=== PATIENT | male | born 1960 | race Caucasian/White ===

== ENCOUNTER 2020-11-28 17:14 | Outpatient (CLI) | payer BC | END 2020-11-28 17:15 | disposition home or self-care (01) | LOC: COV 17:14 | PROVIDERS: ATTEND Family Medicine | DX: Z20.822 Contact with and (suspected) exposure to COVID-19 (principal) ==

== ENCOUNTER 2024-02-15 12:36 | Emergency (ER) | payer BC ==
[2024-02-15 12:52] VITALS: BP 129/77; O2SAT 99
--- NOTE | 2024-02-15 13:15 | ED Physician Documentation ---
PD HPI UPPER EXT INJURY - Stated complaint Stated Complaint: LEFT ARM INJURY - Chief complaint Chief Complaint: Laceration - History obtained from History obtained from: Patient - Additonal information Additional information: Right-handed gentleman who is up-to-date on tetanus accidentally stabbed his left wrist/forearm with a utility knife at home just prior to arrival. No other injuries. Pain is mild. PD PAST MEDICAL HISTORY - Past Medical History Past Medical History: Yes Cardiovascular: Hypertension, High cholesterol Respiratory: None Neuro: None Endocrine/Autoimmune: None GI: None : None HEENT: Glaucoma Psych: None Musculoskeletal: Osteoarthritis Derm: None - Past Surgical History Past Surgical History: Yes - Present Medications Home Medications: Ambulatory Orders Medication Instructions Recorded Confirmed Bimatoprost 0.01% Ophth Dops 1 drops EACHEYE DAILY 08/14/14 02/15/24 [Lumigan 0.01% Ophth Drops] Brimonidine 0.1% Ophth Drops 1 drops EACHEYE 08/14/14 08/14/14 [Alphagan P 0.1% Ophth Drops] Dorzolamide HCl/Timolol Maleat 1 drop EACHEYE DAILY 08/14/14 02/15/24 [Cosopt Eye Drops] Ibuprofen [Advil] 200 mg PO Q8HR PRN 08/14/14 02/15/24 Atorvastatin [Lipitor] 1 cap PO DAILY 02/15/24 02/15/24 Pilocarpine 1% Ophth Drops [Isopto 1 drops EACHEYE DAILY 02/15/24 02/15/24 Carpine 1% Ophth Drops] acetaZOLAMIDE [Acetazolamide] 1 tab PO DAILY 02/15/24 02/15/24 amLODIPine [Norvasc] 10 mg PO DAILY 02/15/24 02/15/24 hydroCHLOROthiazide [Hydrodiuril] 1 cap PO DAILY 02/15/24 02/15/24 - Allergies Allergies/Adverse Reactions: Allergies Allergy/AdvReac Type Severity Reaction Status Date / Time lisinopril Allergy Anaphylaxis Verified 02/15/24 12:40 - Social History Does the pt smoke?: No Smoking Status: Never smoker Does the pt drink ETOH?: Yes Does the pt have substance abuse?: No - Immunizations Immunizations are current?: No Immunizations: Other immun not current - POLST Patient has POLST: No PD ED PE NORMAL - Vitals Vital signs reviewed: Yes - General General: Alert and oriented X 3, No acute distress - Extremities Extremities: Other (There is a 1 cm laceration on the anterior mid to distal left forearm without distal neurovascular compromise.) - Neuro Neuro: Alert and oriented X 3 Results - Vitals Vitals: Vital Signs - 24 hr 02/15/24 12:40 Temperature 36.3 C L Heart Rate 67 Respiratory 16 Rate Blood Pressure 129/77 O2 Saturation 99 Oxygen O2 Source Room air Procedures - Laceration (location) L forearm Length in cm: 1 Wound type: Linear Neurovascular status: Sensory intact, Motor intact, Vascular intact Tendon involvement: Tendon intact Anesthesia: Lidocaine 1% with epi Wound preparation: Irrigated copiously NS Skin layer closure: Nylon, Interrupted, Size #-0 - enter number (4-0), Sutures - enter # (2) Other: Patient tolerated well, No complications, Neurovascular intact, Tetanus UTD Departure - Departure Disposition: 01 Home, Self Care Clinical Impression: Laceration Condition: Good Record reviewed to determine appropriate education?: Yes Instructions: ED Laceration All Comments: Come back for any signs of infection which would include: Redness, swelling, drainage, increased pain, or fevers. You can wash it soap and water. Keep it covered and moist with bacitracin ointment which is available over the counter; avoid neosporin. Follow-up with your physician in about 14 days for suture removal. Forms: PCP List
== END 2024-02-15 13:34 | disposition home or self-care (01) ==
LOC: ED 12:36
DX: S51.812A Laceration without foreign body of left forearm, initial encounter (principal); W26.0XXA Contact with knife, initial encounter; I10 Essential (primary) hypertension
CPT/HCPCS: 12001; 99282